=== PATIENT | female | born 1950 | race Hispanic/Latino ===

== ENCOUNTER 2017-03-09 17:50 | Emergency (ER) | payer MEDICARE ==
[2017-03-09 18:30] VITALS: BP 139/67
[2017-03-09] MEDS ORDERED: MORPHINE IV ONE (18:48)
--- NOTE | 2017-03-09 18:48 | Emergency Department Report ---
ED General Adult HPI - General Chief complaint: Dyspnea/Respdistress Stated complaint: SOB Time Seen by Provider: 03/09/17 18:39 Source: EMS Mode of arrival: Stretcher Limitations: No Limitations - History of Present Illness Initial comments: Patient is a 66-year-old female past medical history of hypertension and COPD who presents with shortness of breath that has been going on since Thursday. Patient states that her shortness of breath has been worsening. She is on home O2 at 3 L. 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 She states that the pain is a 7 currently breathing makes it worse nothing makes it better. She states that she's had this pain for the last 6 months. There is nothing new about this pain. He has an achy type of pain it does not radiate. She states that she often goes to ERs when she has a bad exacerbation of her pain and shortness of breath. She also states that the pain has gotten worse and Thursday. Her shortness of breath symptoms are moderate they are worse with exertion and better with rest. - Related Data Allergies Allergy/AdvReac Type Severity Reaction Status Date / Time Penicillins AdvReac Unknown Verified 10/18/13 16:15 ED Review of Systems ROS: Stated complaint: SOB Other details as noted in HPI Constitutional: weakness. denies: chills, fever Eyes: denies: eye pain, eye discharge, vision change ENT: denies: ear pain, throat pain Respiratory: SOB at rest Cardiovascular: denies: chest pain, palpitations Endocrine: no symptoms reported Gastrointestinal: denies: abdominal pain, nausea, diarrhea Genitourinary: denies: urgency, dysuria, discharge Musculoskeletal: denies: back pain, joint swelling, arthralgia Skin: denies: rash, lesions Neurological: denies: headache, weakness, paresthesias Psychiatric: denies: anxiety, depression Hematological/Lymphatic: denies: easy bleeding, easy bruising ED Past Medical Hx - Past Medical History Previous Medical History?: Yes Hx Hypertension: Yes Hx COPD: Yes - Social History Smoking Status: Former Smoker Substance Use Type: None ED Physical Exam - General Limitations: No Limitations General appearance: alert, in no apparent distress - Head Head exam: Present: atraumatic, normocephalic - Eye Eye exam: Present: normal appearance - ENT ENT exam: Present: mucous membranes moist - Neck Neck exam: Present: normal inspection - Respiratory Respiratory exam: Present: normal lung sounds bilaterally - Cardiovascular Cardiovascular Exam: Present: regular rate, normal rhythm. Absent: systolic murmur, diastolic murmur, rubs, gallop - GI/Abdominal GI/Abdominal exam: Present: soft, normal bowel sounds - Extremities Exam Extremities exam: Present: normal inspection - Back Exam Back exam: Present: paraspinal tenderness - Neurological Exam Neurological exam: Present: alert, oriented X3, CN II-XII intact - Psychiatric Psychiatric exam: Present: normal affect, normal mood - Skin Skin exam: Present: warm, dry, intact, normal color. Absent: rash ED Course Vital Signs 03/09/17 03/09/17 03/09/17 18:25 18:26 18:31 Temperature 98.4 F Pulse Rate 68 75 65 Respiratory 10 L 22 11 L Rate Blood Pressure 139/67 O2 Sat by Pulse 99 98 100 Oximetry 03/09/17 03/09/17 03/09/17 18:32 18:47 19:01 Temperature Pulse Rate 85 68 Respiratory 18 20 14 Rate Blood Pressure O2 Sat by Pulse 100 93 Oximetry 03/09/17 03/09/17 03/09/17 19:15 19:31 19:45 Temperature Pulse Rate 71 68 68 Respiratory 19 14 16 Rate Blood Pressure O2 Sat by Pulse 94 97 98 Oximetry 03/09/17 03/09/17 03/09/17 20:01 20:21 20:41 Temperature Pulse Rate 73 67 81 Respiratory 14 11 L 21 Rate Blood Pressure O2 Sat by Pulse 96 99 92 Oximetry 03/09/17 03/09/17 21:01 21:21 Temperature Pulse Rate 71 70 Respiratory 20 10 L Rate Blood Pressure O2 Sat by Pulse 99 99 Oximetry - Reevaluation(s) Reevaluation #1: 03/09/17 20:05 Patient states pain is lead better but she is still slightly short of breath. Discussed admission with the patient. However patient states that she does not want to be admitted if she doesn't have a private room. Discussed with patient that that may not be possible and will give patient a breathing treatment and will reassess. Reevaluation #2: 03/09/17 21:57 Patient states the pain is better she states that her shortness of breath is better. She states that she does not want to be admitted. As there is nothing new. Discussed return precautions to come back to the ER. Engaged and shared decision making patient will go home. Discussed the patient's family state that they will watch her and if her pain continues or for shortness of breath continues patient will go home. Reevaluation #3: 03/09/17 22:21 The control is negative. Will send patient home 03/09/17 22:21 ED Medical Decision Making - Lab Data Result diagrams: 03/09/17 18:30 03/09/17 18:30 Laboratory Results - last 24 hr 03/09/17 03/09/17 18:30 18:30 WBC 6.7 RBC 4.07 Hgb 12.7 Hct 37.8 MCV 93 MCH 31 MCHC 34 RDW 13.5 Plt Count 210 Lymph % (Auto) 26.9 [place] % (Auto) 7.3 Eos % (Auto) 4.2 Baso % (Auto) 0.7 Lymph # 1.8 [place] # 0.5 Eos # 0.3 Baso # 0.0 Seg Neutrophils % 60.9 Seg Neutrophils # 4.1 Sodium 140 Potassium 4.7 Chloride 101.2 Carbon Dioxide 25 Anion Gap 19 BUN 14 Creatinine 0.6 L Estimated GFR > 60 BUN/Creatinine Ratio 23.33 Glucose 85 Calcium 8.8 Troponin T < 0.010 - EKG Data -: EKG Interpreted by Me - EKG Data 03/09/17 20:04 EKG shows normal sinus rhythm no LVH no T-wave inversions no interval changes. - Radiology Data Radiology results: image reviewed Chest x-ray: Shows no acute pulmonary process - Medical Decision Making Chief medical diagnosis: COPD exacerbation Differential medical diagnosis pneumonia, bronchitis, metabolic abnormality We'll get CBC, CMP, chest x-ray, albuterol, IV pain control Patient feels better after breathing treatment, troponin and EKG are within normal limits. We'll send patient home to follow-up with her primary care provider. Stated that patient could be admitted for her symptoms that she desires. Patient denied admission is because she states that she always feels like this and she feels a lot better after the breathing treatment. Critical care attestation.: If time is entered above; I have spent that time in minutes in the direct care of this critically ill patient, excluding procedure time. ED Disposition Clinical Impression: Back pain of thoracolumbar region Disposition: - TO HOME OR SELFCARE Is pt being admited?: No Does the pt Need Aspirin: No Condition: Stable Instructions: Chronic Obstructive Pulmonary Disease (ED), Chronic Back Pain (ED ) Referrals: [facility] [Other] - 3-5 Days Time of Disposition: 22:00
[2017-03-09 18:52] LABS: Basophils % (Auto) 0.7 % (0.0-1.8); Eosinophils % (Auto) 4.2 % (0.0-4.3); Hematocrit 37.8 % (30.3-42.9); Hemoglobin 12.7 gm/dl (10.1-14.3); Mean Corpuscular HGB Conc 34 % (30-34); Mean Corpuscular Hemoglobin 31 pg (28-32); Mean Corpuscular Volume 93 fl (79-97); Platelet Count 210 K/mm3 (140-440); Red Blood Count 4.07 M/mm3 (3.65-5.03); Red Cell Distribution Width 13.5 % (13.2-15.2); White Blood Count 6.7 K/mm3 (4.5-11.0)
[2017-03-09 19:15] LABS: BUN/Creatinine Ratio 23.33; Blood Urea Nitrogen 14 mg/dL (7-17); Calcium 8.8 mg/dL (8.4-10.2); Carbon Dioxide 25 mmol/L (22-30); Chloride 101.2 mmol/L (98-107); Glucose 85 mg/dL (65-100); Sodium 140 mmol/L (137-145)
[2017-03-09 19:21] LABS: Anion Gap 19 mmol/L; Potassium 4.7 mmol/L (3.6-5.0)
[2017-03-09] MEDS ORDERED: PROVENTIL IH ONE (19:58)
[2017-03-09] MEDS ORDERED: ATROVENT IH ONE (19:58)
[2017-03-09] MEDS ORDERED: NORCO 5/325 PO ONE (21:13)
[2017-03-09] MEDS ORDERED: SUBLIMAZE IV ONE (21:13)
--- NOTE | 2017-03-10 09:40 | XRay Report ---
Chest 2 views. History: Shortness of breath. Findings: The heart and pulmonary vessels are normal. The lungs are hyperinflated and clear. There is no pleural fluid. Pleural scarring is seen at the right cost phrenic angle. Impression: No acute findings.
== END 2017-03-09 23:17 | disposition home or self-care (01) ==
LOC: ED 17:50
DX: M54.5 Low back pain (principal); I10 Essential (primary) hypertension; J44.9 Chronic obstructive pulmonary disease, unspecified; Z87.891 Personal history of nicotine dependence; Z88.0 Allergy status to penicillin
CPT/HCPCS: 36415; 71020; 80048; 84484; 85025; 93005; 93010; 94640; 96374; 96375; 99284; J2270; J3010

== ENCOUNTER 2017-11-16 09:54 | Outpatient (CLI) | payer MEDICARE ==
[2017-11-16 10:24] LABS: Blood Urea Nitrogen 15 mg/dL (7-17)
--- NOTE | 2017-11-16 11:50 | Cat Scan Report ---
FINAL REPORT EXAM: CT CHEST W CON HISTORY: SEVERE COPD TECHNIQUE: CT of the chest was performed after the administration of intravenous contrast. Reconstructions were included in the coronal and sagittal planes. PRIORS: None. FINDINGS: Great vessels: The thoracic aorta is normal in caliber. The great vessels are patent. Atherosclerotic calculi are seen in the thoracic aorta. Lungs and airways: No pleural effusion. No pulmonary nodules or masses. No airspace consolidation. The airways are patent. No bronchiectasis. Severe centrilobular emphysema is seen. Mediastinum, heart, pericardium: No mediastinal lymphadenopathy. No cardiac chamber enlargement. No pericardial effusion. Thoracic inlet, chest wall, axilla: No chest wall masses. The visualized portions of the thyroid gland demonstrate no focal lesion. No axillary lymphadenopathy. Upper abdomen: There is an aneurysm of the right distal renal artery measuring up to 1.1 centimeters. A nonspecific 5 millimeter low-attenuation lesion is seen in the spleen which is too small to characterize but likely represents a small cyst or hemangioma. Post cholecystectomy. Bones: Chronic T5 and T6 compression fractures are seen. Old T6 vertebroplasty is seen. Degenerative changes are seen in the spine. IMPRESSION: 1. Severe centrilobular emphysema. No acute process in the chest. 2. 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
== END 2017-11-16 09:55 | disposition home or self-care (01) ==
LOC: CT 09:54
PROVIDERS: ATTEND Internal Medicine
DX: J43.9 Emphysema, unspecified (principal); I72.2 Aneurysm of renal artery; I70.0 Atherosclerosis of aorta; M48.54XD Collapsed vertebra, not elsewhere classified, thoracic region, subsequent encounter for fracture with routine healing; M47.894 Other spondylosis, thoracic region; Z90.49 Acquired absence of other specified parts of digestive tract
CPT/HCPCS: 36415; 71260; 82565; 84520; Q9967

== ENCOUNTER 2018-04-02 08:46 | Outpatient (CLI) | payer MEDICARE ==
[2018-04-02 09:54] LABS: Blood Urea Nitrogen 12 mg/dL (7-17)
--- NOTE | 2018-04-02 11:11 | Cat Scan Report ---
FINAL REPORT EXAM: CT ANGIO ABDOMEN PELVIS HISTORY: ANEURYSM OF RENAL ARTERY COMPARISON: CT of the chest performed on 11/16/2017 TECHNIQUE: Multiple contiguous axial images were obtained from the lung bases to the pubic symphysis after administration of IV contrast. Reformatted maximal intensity projection images were available for review. Reformatted coronal and sagittal images were also available for review. FINDINGS: Lung bases: Normal. Visualized heart and mediastinum: Normal. Liver: Normal. Spleen: Normal. Pancreas: Normal. Gallbladder and Biliary Tree: The gallbladder is surgically absent. There is no biliary ductal dilatation. Adrenal glands: Normal. Kidneys: Symmetric enhancement to both kidneys. No hydronephrosis. Bladder: Normal. Pelvic organs: The uterus is surgically absent. Bowel: Normal. No evidence of obstruction. Diverticulosis of the descending and sigmoid colon without evidence of diverticulitis. Peritoneum: No significant mesenteric adenopathy. No free air. Small amount of free fluid in the pelvis. Vasculature: Abdominal aorta is normal in caliber without evidence of aneurysm. Scattered atherosclerotic plaques and calcifications. There are two arteries to each kidney. The left renal arteries are patent and normal in caliber. Again seen is an aneurysm of the upper distal right renal artery that measures approximately 1.2 x 1.2 centimeters, and is unchanged in appearance as compared to the previous study. There is also a peripherally calcified thrombosed aneurysm of a superior branch of the upper right renal artery that measures 9 millimeters in size (series 2, image 46). The accessory right renal artery is patent and normal in caliber. The celiac axis, superior mesenteric artery, and inferior mesenteric artery are patent and normal in caliber. There is a normal appearance to the inferior vena cava and portal venous system. Bones and soft tissues: No suspicious osseous lesions. No acute fracture or dislocation. Soft tissues are normal. IMPRESSION: 1. Stable size of right renal artery aneurysm that measures approximately 1.2 x 1.2 centimeters. 2. 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 3. Accessory artery to each kidney. 4. Small amount of free fluid in the pelvis, likely physiologic. 5. Diverticulosis of the descending and sigmoid colon without evidence of diverticulitis.
== END 2018-04-02 08:47 | disposition home or self-care (01) ==
LOC: CT 08:46
PROVIDERS: ATTEND Surgery Vascular Surgery
DX: I72.2 Aneurysm of renal artery (principal); K57.30 Diverticulosis of large intestine without perforation or abscess without bleeding; I10 Essential (primary) hypertension; J44.9 Chronic obstructive pulmonary disease, unspecified; Z87.891 Personal history of nicotine dependence
CPT/HCPCS: 36415; 74174; 82565; 84520; Q9967

== ENCOUNTER 2018-10-12 08:27 | Outpatient (CLI) | payer MEDICARE ==
[2018-10-12 09:12] LABS: Blood Urea Nitrogen 12 mg/dL (7-17)
--- NOTE | 2018-10-13 04:41 | Cat Scan Report ---
PROCEDURE: CT ANGIO ABDOMEN PELVIS TECHNIQUE: Computerized axial tomographic angiography of the abdomen and pelvis was performed after the IV injection of iodinated nonionic contrast. The image data was postprocessed using 2-dimensional multiplanar reformatted (MPR) and 3-dimensional (MIP and/or volume rendered) techniques. CT DOSE LENGTH PRODUCT: 650 mGycm HISTORY: ANEURYSM OF RENAL ARTERY COMPARISONS: None . FINDINGS: Abdominal aorta: The lumen of the abdominal aorta has a normal caliber. No aneurysm is seen. Moderat e atherosclerosis of the aorta is noted. . Celiac artery: Normal . Superior mesenteric artery: Normal . Left renal artery: There are 2 arterial structures feeding the left kidney. These have a normal calib er. . Right renal artery: There are 2 arterial structures to be right kidney. The superior arterial structu re has a distal aneurysm with moderate peripheral atherosclerosis. This aneurysm measures 1 cm. . Inferior mesenteric artery: Normal . Common iliacs: Normal . External iliacs: Normal . Internal iliacs: Normal . Hypervascular masses: None . Abdominal and pelvic viscera: Normal . Other: None . IMPRESSION: 2 arterial structures are identified to the right kidney. The superior right renal arter ial structure has a distal aneurysm measuring 1 cm. Minimal peripheral atherosclerosis within the art erial structures are noted. The abdominal aorta has a normal lumen caliber. Moderate atherosclerosis of the aorta is noted. . This document is electronically signed by Lis Suggs DO., October 13 2018 04:39:31 AM ET
== END 2018-10-12 08:28 | disposition home or self-care (01) ==
LOC: CT 08:27
PROVIDERS: ATTEND Surgery Vascular Surgery
DX: I72.2 Aneurysm of renal artery (principal); I73.9 Peripheral vascular disease, unspecified; I10 Essential (primary) hypertension; J44.9 Chronic obstructive pulmonary disease, unspecified
CPT/HCPCS: 36415; 74174; 82565; 84520; Q9967

== ENCOUNTER 2018-12-15 09:09 | Emergency (ER) | payer MEDICARE ==
--- NOTE | 2018-12-15 09:46 | XRay Report ---
ROUTINE CHEST, TWO VIEWS: HISTORY: Short of breath, COPD. Moderate to severe hyperinflation is evident consistent with COPD. No evidence for infiltrate, pleural effusion or pneumothorax. Heart size and pulmonary vessels are within normal limits. Kyphoplasty changes have been performed at the approximate T5 level since 03/09/17. IMPRESSION: COPD.
[2018-12-15] MEDS ORDERED: TORADOL IV ONE (10:48)
[2018-12-15] MEDS ORDERED: NACL 0.9% 500 ML 500 ML IV ONE (10:48)
[2018-12-15] MEDS ORDERED: SUBLIMAZE IV ONE ×2 (10:48→13:56)
--- NOTE | 2018-12-15 10:49 | Emergency Department Report ---
ED General Adult HPI - General Chief complaint: Dyspnea/Respdistress Stated complaint: BACK PAIN/SOB Time Seen by Provider: 12/15/18 10:36 Source: patient, family, RN notes reviewed, old records reviewed Mode of arrival: Ambulatory Limitations: No Limitations - History of Present Illness Initial comments: Primary care doctor: Dr. Solorio Pulmonology: Dr. Rosario Thompson Past medical history: COPD, on home oxygen, history of kyphoplasty, history of incidental right renal artery aneurysm This is a 68-year-old female. The patient is not known to this provider previously. She presents to the emergency room with the complaint of nontraumatic left-sided thoracic back pain. The pain is sharp and achy, and is basically constant, and worsens with palpation, deep inspiration, and it decreases with rest. It has been present for 2 weeks. It does not radiate distally. There is no new or different cough. There is no new or different shortness of breath. There is no abdominal pain. The patient endorses no urinary symptoms. She really hasn't taken much in way of pain medication for this. She saw her pulmonology doctor, who offered the opinion that her pain was likely secondary to musculoskeletal etiology. -: Gradual Location: back Radiation: non-radiation Quality: aching Consistency: constant Improves with: rest Worsens with: other Associated Symptoms: denies: confusion, chest pain - Related Data Previous Rx's Medication Instructions Recorded Last Taken Type Acetaminophen [Non-Aspirin Extra 500 mg PO Q6HR PRN #30 tablet 12/15/18 Unknown Rx Strength] Ibuprofen [Motrin] 400 mg PO Q8H PRN #20 tablet 12/15/18 Unknown Rx Lidocaine [Lidoderm] 1 each TP QDAY #5 adh..patch 12/15/18 Unknown Rx levoFLOXacin [Levaquin TAB] 500 mg PO QDAY #7 tablet 12/15/18 Unknown Rx oxyCODONE [roxiCODONE] 5 mg PO Q6HR PRN #15 tablet 12/15/18 Unknown Rx Allergies Allergy/AdvReac Type Severity Reaction Status Date / Time Penicillins AdvReac Unknown Verified 10/18/13 16:15 ED Review of Systems ROS: Stated complaint: BACK PAIN/SOB Other details as noted in HPI Constitutional: denies: fever Eyes: denies: eye discharge ENT: denies: congestion Respiratory: shortness of breath Cardiovascular: denies: chest pain Gastrointestinal: denies: abdominal pain Genitourinary: denies: dysuria Musculoskeletal: back pain Skin: denies: lesions Neurological: weakness Psychiatric: anxiety ED Past Medical Hx - Past Medical History Previous Medical History?: Yes Hx Hypertension: Yes Hx COPD: Yes - Surgical History Past Surgical History?: Yes Hx Appendectomy: Yes Additional Surgical History: Back surgery - Social History Smoking Status: Former Smoker Substance Use Type: None - Medications Home Medications: Home Medications Medication Instructions Recorded Confirmed Last Taken Type Acetaminophen [Non-Aspirin Extra 500 mg PO Q6HR PRN #30 tablet 12/15/18 Unknown Rx Strength] Ibuprofen [Motrin] 400 mg PO Q8H PRN #20 tablet 12/15/18 Unknown Rx Lidocaine [Lidoderm] 1 each TP QDAY #5 adh..patch 12/15/18 Unknown Rx levoFLOXacin [Levaquin TAB] 500 mg PO QDAY #7 tablet 12/15/18 Unknown Rx oxyCODONE [roxiCODONE] 5 mg PO Q6HR PRN #15 tablet 12/15/18 Unknown Rx ED Physical Exam - General Limitations: No Limitations General appearance: alert, anxious, in distress - Head Head exam: Present: atraumatic, normocephalic - Eye Eye exam: Present: normal appearance, EOMI. Absent: nystagmus - ENT ENT exam: Present: normal exam, normal orophraynx, mucous membranes moist, normal external ear exam - Neck Neck exam: Present: normal inspection, full ROM. Absent: tenderness, meningismus - Respiratory Respiratory exam: Present: normal lung sounds bilaterally, respiratory distress, chest wall tenderness, decreased breath sounds - Cardiovascular Cardiovascular Exam: Present: regular rate, normal rhythm, normal heart sounds. Absent: bradycardia, tachycardia, irregular rhythm, systolic murmur, diastolic murmur, rubs, gallop - GI/Abdominal GI/Abdominal exam: Present: soft. Absent: distended, tenderness, guarding, rebound, rigid, pulsatile mass - Extremities Exam Extremities exam: Present: normal inspection, full ROM, other (2+ pulses noted in the bilateral upper, lower extremities. Compartments soft. No long bony tenderness. The pelvis is stable.). Absent: pedal edema, joint swelling, calf tenderness - Back Exam Back exam: Present: normal inspection, full ROM, paraspinal tenderness. Absent: tenderness, CVA tenderness (R), CVA tenderness (L) - Neurological Exam Neurological exam: Present: alert, other (Extraocular movements intact. Tongue midline. No facial droop. Facial sensation intact to light touch in the V1, V2, V3 distribution bilaterally. 5 and 5 strength in 4 extremities.. Sensation is intact to light touch in 4 extremities.). Absent: motor sensory deficit - Psychiatric Psychiatric exam: Present: anxious - Skin Skin exam: Present: warm, dry, intact, normal color. Absent: rash ED Course Vital Signs 12/15/18 12/15/18 12/15/18 09:16 11:31 11:45 Temperature Pulse Rate 70 Respiratory 24 23 Rate Blood Pressure 130/57 Blood Pressure [Right] O2 Sat by Pulse 95 100 99 Oximetry 12/15/18 12/15/18 12/15/18 11:49 12:00 12:15 Temperature Pulse Rate 76 72 Respiratory 22 16 17 Rate Blood Pressure 118/66 118/66 Blood Pressure [Right] O2 Sat by Pulse 98 100 Oximetry 12/15/18 12/15/18 12/15/18 12:30 12:45 13:00 Temperature 98.2 F 98.5 F Pulse Rate 72 79 Respiratory 24 18 Rate Blood Pressure 118/59 118/59 Blood Pressure [Right] O2 Sat by Pulse 100 99 Oximetry 12/15/18 12/15/18 12/15/18 13:03 13:15 13:31 Temperature Pulse Rate 106 H 83 87 Respiratory 21 17 21 Rate Blood Pressure 118/59 118/59 118/59 Blood Pressure [Right] O2 Sat by Pulse 95 100 98 Oximetry 12/15/18 12/15/18 12/15/18 13:45 14:15 14:22 Temperature 98.6 F Pulse Rate 86 87 83 Respiratory 20 19 18 Rate Blood Pressure 126/59 89/44 Blood Pressure 155/69 [Right] O2 Sat by Pulse 98 98 99 Oximetry 12/15/18 15:05 Temperature Pulse Rate Respiratory 18 Rate Blood Pressure Blood Pressure [Right] O2 Sat by Pulse Oximetry - Reevaluation(s) Reevaluation #1: 12/15/18 11:32 Differential diagnosis, including but not limited to: Costochondritis, pleurisy, pneumonia, pulmonary embolus Assessment and plan: 68-year-old female with reported 2 weeks of reproducible left-sided thoracic back pain, pleuritic in nature, suspect musculoskeletal etiology. We will obtain CT scan of the chest to exclude alternative pathology. We will treat the patient's pain. We will reassess after initial data points. She is afebrile, with reassuring vital signs, and otherwise clinically appears to be benign. 12/15/18 11:32 Reevaluation #3: 12/15/18 13:57 Resting comfortably. Pain improved. Requesting additional pain medication. Angiogram interpretation is pending. Discussed vital signs, laboratory studies and urinalysis with patient and family, all of whom verbalized understanding. Patient endorses increased discomfort at this time. 12/15/18 15:34 CT scan is reviewed and appreciated. Discussed results with patient and family. Patient states that she has had Levaquin in the past. She is amenable to Levaquin. Discussed risks and side effects, including tendinopathy and tendon rupture. Patient thinks that she cannot tolerate penicillin. We will therefore cover empirically with Levaquin. Extensive discussion had with patient and family regarding CT scan. Patient understands need to closely follow up as an outpatient with her creative project manager and primary care doctor to cover goals of care, clarify advanced directives, and discussed outpatient management options. Patient and I had extensive discus aleida, and discussed various therapeutic modalities, including palliative care, versus aggressive care. ED Medical Decision Making - Lab Data Result diagrams: 12/15/18 11:15 12/15/18 11:15 Vital Signs 12/15/18 09:16 Respiratory 24 Rate O2 Sat by Pulse 95 Oximetry - EKG Data 12/15/18 11:33 This is a normal sinus, 80 bpm, normal axis, normal intervals, poor R progression, motion artifact, not having chest pain, this is an abnormal EKG, it is not consistent with ST elevation myocardial infarction, when compared to prior EKG from 2016, appears to be grossly unchanged. - Radiology Data Radiology results: report reviewed, image reviewed X-ray of the chest is negative for acute disease. Chronic emphysematous changes noted Referring Physician: SULEMA GRANGER Patient Name: CHRIS MEJÍA Date of : 1950 Sex: Female Report Date: 2018-12-15 Report Status: Finalized [address] [address] Cat Scan Report Signed Patient: CHRIS MEJÍA MR#: [id number] : 1950 Acct:[id number] Age/Sex: 68 / F ADM Date: 12/15/18 Loc: ED Att ending Dr: Ordering Physician: SULEMA GRANGER MD Date of Service: 12/15/18 Procedure(s): CT angio chest Accession Number(s): [id number] cc: SULEMA GRANGER MD PROCEDURE: CT ANGIO CHEST TECHNIQUE: TECHNIQUE: CT examination of the chest after IV contrast. Multiplanar angiographic image post processing. CT DOSE LENGTH PRODUCT: 498.9 mGycm HISTORY: left sided pleuritic pain COMPARISONS: Chest CT 11/16/2017 . FINDINGS: Normal cardiac size without pericardial effusion. Intact normal caliber thoracic aorta with slight calcified atherosclerotic plaque. Normal-appearing esophagus. No hilar mass or mediastinal adenopathy. The visualized pulmonary arteries are diffusely patent bilaterally. There is no filling defect to suggest PE. Nonspecific enhancing lesions adjacent to the right renal hilus appear vascular. These may be distal renal artery aneurysms. Anterior superior lesion measures 15 mm and posterior inferior lesion measures 12 mm. Degenerative change in the regional skeleton. No evidence of acute fracture. Chronic compression fractures of T5 and T6, with T6 kyphoplasty, appear unchanged. No pneumothorax or pleural effusion. Persistent bilateral pulmonary emphysema with scattered interstitial scarring. New nonspecific nodular density is noted posteriorly within region of emphysematous scarring in the posterior aspect of the left lower lobe. Area of involvement is approximately 1.1 x 3.6 cm. This may be scar consolidation, inflammation,, atelectasis, or infection. Differential includes neoplastic infiltration with lesion relatively dispersed. IMPRESSION: New nonspecific nodular density in the region of the posterior left lower lobe emphysematous scarring. This may be scar consolidation, inflammation, atelectasis, or infection. Differential includes neoplastic infiltration with lesion relatively dispersed. Per Fleischner Society guidelines, a nodule larger than 8mm should be further evaluated with the following options: PET-CT Or biopsy of the nodule Or Noncontrast surveillance chest CT follow-up at 3, 9 and 24 months Nonspecific enhancing lesions adjacent to the right renal hilus may again reflect pulmonary artery aneurysms Stable chronic compression fractures of T6 and T5 with T6 kyphoplasty Bilateral pulmonary emphysema with interstitial scarring No CT evidence of pulmonary arterial embolic disease This document is electronically signed by Tyrel Thacker MD., Dec 15 2018 02:35:00 PM ET Transcribed By: BAL Dictated By: TYREL THACKER MD Electronically Authenticated By: TYREL THACKER MD Signed Date/Time: 12/15/18 1436 Critical Care Time: Yes Critical care time in (mins) excluding proc time.: 45 Critical care attestation.: If time is entered above; I have spent that time in minutes in the direct care of this critically ill patient, excluding procedure time. ED Disposition Clinical Impression: Back pain, History of COPD Disposition: DC-01 TO HOME OR SELFCARE Is pt being admited?: No Does the pt Need Aspirin: No Condition: Stable Additional Instructions: Take pain medications as needed/directed. Take the antibiotics as needed/directed. Do not take metformin for the next 48 hours, if patient takes this medication. Cultures were sent today, and results will be available in the next 3-5 days. P callum have a primary care doctor contact medical records department to obtain culture results. CT scan of the chest (report was physically handed to patient and family) demonstrated nonspecific findings which need to be followed up by her primary care doctor or manipulative therapy specialist. Patient should follow up closely, within the next 7-10 days, to exclude cancer, tumor, malignancy. Please follow up with her primary care doctor or pain specialist ( Dr Preet Meade) within the next 7-10 days. Please return to the emergency room right away with new pain, worsened pain, migration of pain, projectile vomiting, change in mental status, confusion, inability to tolerate liquid feeds, new, worsening or different symptoms. Referrals: JULIO CESAR SOLORIO MD [Referring] - 3-5 Days DAFNE TALAVERA MD [Staff Physician] - 3-5 Days LASHA MEADE MD [Staff Physician] - 3-5 Days
[2018-12-15] MEDS ORDERED: LIDODERM 5% TD STA (11:27)
[2018-12-15 11:38] LABS: Hemoglobin 12.1 gm/dl (10.1-14.3); Mean Corpuscular HGB Conc 34 % (30-34); Mean Corpuscular Volume 93 fl (79-97); Platelet Count 199 K/mm3 (140-440); Red Blood Count 3.88 M/mm3 (3.65-5.03); Red Cell Distribution Width 13.4 % (13.2-15.2)
[2018-12-15 11:51] LABS: INR 0.82 (0.87-1.13)
[2018-12-15 11:56] LABS: Bacteria,Urine 2+ /HPF (Negative); Bilirubin,Urine NEG (Negative); Blood,Urine MOD (Negative); Color,Urine Straw (Yellow); Mucus,Urine FEW /HPF; Protein,Urine <15 mg/dL mg/dL (Negative); Urobilinogen,Urine < 2.0 mg/dL (<2.0)
[2018-12-15 11:59] LABS: BUN/Creatinine Ratio 22; Blood Urea Nitrogen 11 mg/dL (7-17); Calcium 9.3 mg/dL (8.4-10.2); Hemolysis Index 1
[2018-12-15] MEDS ORDERED: XYLOCAINE CARDIAC IV ONE (13:56)
--- NOTE | 2018-12-15 14:36 | Cat Scan Report ---
PROCEDURE: CT ANGIO CHEST TECHNIQUE: TECHNIQUE: CT examination of the chest after IV contrast. Multiplanar angiographic image post processing. CT DOSE LENGTH PRODUCT: 498.9 mGycm HISTORY: left sided pleuritic pain COMPARISONS: Chest CT 11/16/2017 . FINDINGS: Normal cardiac size without pericardial effusion. Intact normal caliber thoracic aorta with slight ca lcified atherosclerotic plaque. Normal-appearing esophagus. No hilar mass or mediastinal adenopathy. The visualized pulmonary arteries are diffusely patent bilaterally. There is no filling defect to sug gest PE. Nonspecific enhancing lesions adjacent to the right renal hilus appear vascular. These may be distal renal artery aneurysms. Anterior superior lesion measures 15 mm and posterior inferior lesion measure s 12 mm. Degenerative change in the regional skeleton. No evidence of acute fracture. Chronic compression frac tures of T5 and T6, with T6 kyphoplasty, appear unchanged. No pneumothorax or pleural effusion. Persistent bilateral pulmonary emphysema with scattered intersti tial scarring. New nonspecific nodular density is noted posteriorly within region of emphysematous scarring in the p osterior aspect of the left lower lobe. Area of involvement is approximately 1.1 x 3.6 cm. This may b e scar consolidation, inflammation,, atelectasis, or infection. Differential includes neoplastic infi ltration with lesion relatively dispersed. IMPRESSION: New nonspecific nodular density in the region of the posterior left lower lobe emphysematous scarring . This may be scar consolidation, inflammation, atelectasis, or infection. Differential includes neop lastic infiltration with lesion relatively dispersed. Per Fleischner Society guidelines, a nodule lar kaylene than 8mm should be further evaluated with the following options: PET-CT Or biopsy of the nodule Or Noncontrast surveillance chest CT follow-up at 3, 9 and 24 months Nonspecific enhancing lesions adjacent to the right renal hilus may again reflect pulmonary artery an eurysms Stable chronic compression fractures of T6 and T5 with T6 kyphoplasty Bilateral pulmonary emphysema with interstitial scarring No CT evidence of pulmonary arterial embolic disease This document is electronically signed by Tyrel Thacker MD., Dec 15 2018 02:35:00 PM ET
[2018-12-15 15:48] VITALS: BP 145/75
== END 2018-12-15 16:11 | disposition home or self-care (01) ==
LOC: ED 09:09
DX: M54.6 Pain in thoracic spine (principal); J44.9 Chronic obstructive pulmonary disease, unspecified; I10 Essential (primary) hypertension; Z90.89 Acquired absence of other organs; Z98.890 Other specified postprocedural states; Z87.891 Personal history of nicotine dependence; Z87.81 Personal history of (healed) traumatic fracture; Z86.79 Personal history of other diseases of the circulatory system; Z88.0 Allergy status to penicillin
CPT/HCPCS: 36415; 71046; 71275; 80048; 81001; 85027; 85610; 85730; 87086; 93005; 93010; 96374; 96375; 96376; 99285; J1885; J2001; J3010; J7040; Q9967

== ENCOUNTER 2019-02-24 11:02 | Outpatient (CLI) | payer MEDICARE ==
--- NOTE | 2019-02-25 10:04 | PET Report ---
POSITRON EMISSION TOMOGRAPHY WITH CT FOR ATTENUATION CORRECTION AND ANATOMIC CORRELATION ONLY Indication: Left lower lobe lesion on CT Comparison: None available the report from CT chest of 12/15/2018 has been reviewed Technique: Study was performed from skull base to mid thigh using 14.353 millicuries of [id number] injec carmen into the left antecubital fossa at 1148 hours with scan initiation time of 1234 hours. Just prior to injection, serum glucose level was measured at 100 mg/dl. Low-resolution CT without contrast was performed. All CT scans at this location are performed using CT dose reduction for ALARA by means of automated exposure control. CT findings: No mediastinal or hilar masses are obvious. Atherosclerotic changes are moderately promi nent throughout. Previously reported mostly upper lobe emphysematous changes are seen bilaterally. An area of atelectasis or scarring is seen in the anterior aspect of the left upper lobe. Within this a samaria of vague density there is an ovoid slightly nodular and more solid-appearing density measuring 11 mm in length and 6 mm in thickness. In the superior segment of the left lower lobe posteriorly adjac ent to the pleural surface, a small nodular type density is seen measuring 9 mm which elongates along the pleural surface. No significant radiographic lesions are seen below the diaphragm. PET findings: No hypermetabolic lesions are seen in the neck. No mediastinal or hilar hypermetabolic lesions are seen. The area of atelectasis versus scarring radiographically in the anterior aspect of the left upper lobe shows a small amount of metabolic activity with maximal SUV of only 2.3 appearing to correspond roughly with the nodular area of maximal density. The more nodular focus along the ple ural surface in the left lower lobe also shows increased metabolic activity which has a peak value of 2.7. No other areas of increased metabolic activity are seen in the thorax. No significant lesions a re seen in the abdomen or pelvis. IMPRESSION: 1. The area in question on prior report of the CT in December shows mild increased metabolic activity. Thi s nodular density is somewhat scarlike in configuration but the presence of activity is of concern an d neoplasia cannot be excluded. 2. A vague area of atelectatic change and/or scarring in the left upper lobe anteriorly has a denser central area which shows small amount of increased metabolic activity. Neoplasia cannot be excluded t vi this could be inflammatory and radiographically is more likely inflammatory. Signer Name: Andrew Patterson MD Signed: 02/25/2019 9:59 AM Workstation Name: [id number]
== END 2019-02-24 11:03 | disposition home or self-care (01) ==
LOC: PET 11:02
PROVIDERS: ATTEND Internal Medicine
DX: J98.11 Atelectasis (principal); I10 Essential (primary) hypertension; J44.9 Chronic obstructive pulmonary disease, unspecified
CPT/HCPCS: 78815; 82962; A9552

== ENCOUNTER 2019-03-17 06:16 | Day surgery (SDC) | payer MEDICARE ==
[2019-03-17] MEDS ORDERED: NACL 0.9% 500 ML 500 ML IV SCH (07:00)
[2019-03-17 07:06] VITALS: BP 136/57
[2019-03-17 07:07] LABS: Basophils % (Auto) 1.1 % (0.0-1.8); Eosinophils # (Auto) 0.3 K/mm3 (0.0-0.4); Eosinophils % (Auto) 6.2 % (0.0-4.3); Hematocrit 33.6 % (30.3-42.9); Hemoglobin 11.2 gm/dl (10.1-14.3); Lymphocytes # (Auto) 1.2 K/mm3 (1.2-5.4); Lymphocytes % (Auto) 27.1 % (13.4-35.0); Mean Corpuscular HGB Conc 33 % (30-34); Mean Corpuscular Volume 91 fl (79-97); Monocytes # (Auto) 0.3 K/mm3 (0.0-0.8); Monocytes % (Auto) 8.2 % (0.0-7.3); Platelet Count 177 K/mm3 (140-440); Red Blood Count 3.69 M/mm3 (3.65-5.03)
[2019-03-17 07:17] LABS: INR 0.92 (0.87-1.13); Partial Thromboplastin Time 30.3 Sec. (24.2-36.6)
[2019-03-17] MEDS ORDERED: DILAUDID IV NR (08:00)
[2019-03-17] MEDS ORDERED: ZOFRAN IV NR (08:00)
== END 2019-03-17 08:25 | disposition home or self-care (01) ==
LOC: CATHLABREC 06:16 → EDSTATUS 08:30
PROVIDERS: ATTEND Internal Medicine
DX: J44.9 Chronic obstructive pulmonary disease, unspecified (principal); R91.8 Other nonspecific abnormal finding of lung field; I10 Essential (primary) hypertension; M06.9 Rheumatoid arthritis, unspecified; F41.9 Anxiety disorder, unspecified; Z53.8 Procedure and treatment not carried out for other reasons; Z88.0 Allergy status to penicillin; Z79.899 Other long term (current) drug therapy; Z87.891 Personal history of nicotine dependence; E78.00 Pure hypercholesterolemia, unspecified; Z90.49 Acquired absence of other specified parts of digestive tract; Z98.890 Other specified postprocedural states; Z87.442 Personal history of urinary calculi; Z82.5 Family history of asthma and other chronic lower respiratory diseases; Z79.01 Long term (current) use of anticoagulants
CPT/HCPCS: 36415; 85025; 85610; 85730; J7040

== ENCOUNTER 2019-05-17 08:43 | Emergency (ER) | payer MEDICARE ==
[2019-05-17] MEDS ORDERED: PROVENTIL IH ONE (09:22)
[2019-05-17] MEDS ORDERED: ATROVENT IH ONE (09:22)
[2019-05-17] MEDS ORDERED: SOLU-Medrol IV ONE (09:22)
[2019-05-17] MEDS ORDERED: ZOFRAN IV ONE (09:23)
[2019-05-17] MEDS ORDERED: MORPHINE IV ONE (09:23)
--- NOTE | 2019-05-17 09:26 | Emergency Department Report ---
ED Shortness of Breath HPI - General Chief Complaint: Dyspnea/Respdistress Stated Complaint: LUIS Time Seen by Provider: 05/17/19 09:17 Source: patient, EMS Mode of arrival: Stretcher Limitations: No Limitations - History of Present Illness Initial Comments: Patient is 69 years old female with history of COPD and hypertension. Patient presented to the ER accompanied by her family complaining of shortness of breath for the last 3 days. Patient stated that she is taking albuterol breathing treatment with no help. Patient denied any chest pain, fever or chills. She also denied any nausea or vomiting. MD Complaint: shortness of breath, cough -: days(s) (2) Known History Of: COPD - Related Data Home Medications Medication Instructions Recorded Confirmed Last Taken ALBUTEROL NEB's [Proventil 0.083% 3 ml INHALATION QID 03/17/19 03/17/19 03/17/19 NEBS] 1 dose ALPRAZolam [Xanax TAB] 0.5 tab PO PRN PRN 03/17/19 03/17/19 03/16/19 0.5tab Citalopram [Celexa] 20 mg PO DAILY 03/17/19 03/17/19 03/16/19 20 mg Fluticasone [Flonase] 1 spray INTRANASAL PRN PRN 03/17/19 03/17/19 11/15/18 1 spray Fluticasone/Vilanterol [Breo 1 puff INHALATION DAILY 03/17/19 03/17/19 03/16/19 Ellipta 100-25 Mcg INH] 1 puff HYDROcodone/APAP 10-325 [[place] 1 tab PO TID PRN 03/17/19 03/17/19 03/16/19 10-325 mg TAB] 1 tab Ipratropium/Albuterol Sulfate 2 puff INHALATION BID 03/17/19 03/17/19 03/16/19 [Combivent Respimat] 2 puff Losartan [Cozaar] 50 mg PO DAILY 03/17/19 03/17/19 03/16/19 50 mg traZODone [Desyrel] 50 mg PO TID 03/17/19 03/17/19 03/16/19 50 mg Allergies Allergy/AdvReac Type Severity Reaction Status Date / Time Penicillins AdvReac Rash Verified 03/17/19 06:40 ED Review of Systems ROS: Stated complaint: LUIS Other details as noted in HPI Comment: All other systems reviewed and negative Constitutional: denies: chills, fever Respiratory: cough, shortness of breath, SOB with exertion, SOB at rest, wheezing. denies: orthopnea Cardiovascular: denies: chest pain, palpitations Gastrointestinal: denies: abdominal pain, nausea, vomiting Musculoskeletal: denies: back pain ED Past Medical Hx - Past Medical History Hx Hypertension: Yes Hx Arthritis: Yes Hx Kidney Stones: Yes Hx COPD: Yes - Surgical History Hx Cholecystectomy: Yes Hx Appendectomy: Yes Additional Surgical History: Back surgery - Social History Smoking Status: Former Smoker - Medications Home Medications: Home Medications Medication Instructions Recorded Confirmed Last Taken Type ALBUTEROL NEB's [Proventil 0.083% 3 ml INHALATION QID 03/17/19 03/17/19 03/17/19 History NEBS] 1 dose ALPRAZolam [Xanax TAB] 0.5 tab PO PRN PRN 03/17/19 03/17/19 03/16/19 History 0.5tab Citalopram [Celexa] 20 mg PO DAILY 03/17/19 03/17/19 03/16/19 History 20 mg Fluticasone [Flonase] 1 spray INTRANASAL PRN PRN 03/17/19 03/17/19 11/15/18 History 1 spray Fluticasone/Vilanterol [Breo 1 puff INHALATION DAILY 03/17/19 03/17/19 03/16/19 History Ellipta 100-25 Mcg INH] 1 puff HYDROcodone/APAP 10-325 [[place] 1 tab PO TID PRN 03/17/19 03/17/19 03/16/19 History 10-325 mg TAB] 1 tab Ipratropium/Albuterol Sulfate 2 puff INHALATION BID 03/17/19 03/17/19 03/16/19 History [Combivent Respimat] 2 puff Losartan [Cozaar] 50 mg PO DAILY 03/17/19 03/17/19 03/16/19 History 50 mg traZODone [Desyrel] 50 mg PO TID 03/17/19 03/17/19 03/16/19 History 50 mg ED Physical Exam - General Limitations: No Limitations General appearance: alert, in no apparent distress - Head Head exam: Present: atraumatic, normocephalic, normal inspection - Eye Eye exam: Present: normal appearance, PERRL - ENT ENT exam: Present: normal exam, normal orophraynx, mucous membranes moist - Neck Neck exam: Present: normal inspection, full ROM. Absent: tenderness, meningismus, lymphadenopathy, thyromegaly - Respiratory Respiratory exam: Present: respiratory distress, wheezes, rhonchi. Absent: rales, stridor, accessory muscle use, decreased breath sounds, prolonged expirat ory - Cardiovascular Cardiovascular Exam: Present: regular rate, normal rhythm, normal heart sounds - GI/Abdominal GI/Abdominal exam: Present: soft, normal bowel sounds. Absent: distended, tenderness, guarding, rebound, rigid, organomegaly, mass, bruit, pulsatile mass, hernia - Extremities Exam Extremities exam: Present: normal inspection, full ROM, normal capillary refill. Absent: tenderness, pedal edema, calf tenderness - Back Exam Back exam: Present: normal inspection, full ROM. Absent: CVA tenderness (R), CVA tenderness (L) - Neurological Exam Neurological exam: Present: alert, oriented X3, CN II-XII intact, normal gait, reflexes normal - Psychiatric Psychiatric exam: Present: normal mood - Skin Skin exam: Present: warm, intact, normal color ED Course Vital Signs 05/17/19 05/17/19 10:22 11:16 Temperature 98.3 F Pulse Rate 78 Pulse Rate [ 79 Anterior Bilateral Throughout] Respiratory 16 Rate Respiratory 18 Rate [Anterior Bilateral Throughout] Blood Pressure 116/41 [Left] O2 Sat by Pulse 97 Oximetry ED Medical Decision Making - Lab Data Result diagrams: 05/17/19 09:39 05/17/19 09:39 - EKG Data -: EKG Interpreted by Pa EKG shows normal: sinus rhythm Rate: normal - EKG Data Interpretation: no acute changes - Radiology Data Radiology results: report reviewed - Medical Decision Making Patient is 69 years old female with history of COPD and hypertension. Patient presented to the ER accompanied by her family complaining of shortness of breath for the last 3 days. Patient stated that she is taking albuterol breathing treatment with no help. Patient denied any chest pain, fever or chills. She also denied any nausea or vomiting. Patient received albuterol, Atrovent, Solu-Medrol. Patient stated that she is feeling much better. Lung is clear with no wheezing. Chest x-ray is unremarkable. Labs reviewed and is unremarkable. Patient given a prescription of prednisone pack and Levaquin and advised to follow-up with her primary care physician in the next 2-3 days and to attend to the ER if symptoms are not improved. Critical care attestation.: If time is entered above; I have spent that time in minutes in the direct care of this critically ill patient, excluding procedure time. ED Disposition Clinical Impression: Shortness of breath, COPD exacerbation, Acute bronchitis Disposition: TO HOME OR SELFCARE Is pt being admited?: No Condition: Stable Instructions: Chronic Obstructive Pulmonary Disease (ED), Acute Bronchitis (ED) Referrals: SULEMA CAMPUZANO MD [Primary Care Provider] - 3-5 Days
--- NOTE | 2019-05-17 09:41 | XRay Report ---
CHEST 1 VIEW INDICATION: Dyspnea. COMPARISON: 12/15/2018 FINDINGS: Support devices: None. Heart: Within normal limits. Lungs/Pleura: The lungs are mildly hyperinflated suggesting underlying emphysematous changes. No evid ence for infiltrate, pleural fluid or pneumothorax. Additional findings: The bony structures are intact but appear osteopenic. IMPRESSION: Emphysematous changes. No acute process. Signer Name: Naresh Mera Jr, MD Signed: 05/17/2019 9:37 AM Workstation Name: [id number]
[2019-05-17] MEDS ORDERED: MORPHINE ONE (09:56)
[2019-05-17 10:19] LABS: Hematocrit 36.5 % (30.3-42.9); Mean Corpuscular HGB Conc 33 % (30-34); Mean Corpuscular Volume 91 fl (79-97); Platelet Count 136 K/mm3 (140-440); Red Blood Count 3.99 M/mm3 (3.65-5.03); Red Cell Distribution Width 13.4 % (13.2-15.2)
[2019-05-17 10:30] LABS: INR 1.03 (0.87-1.13)
[2019-05-17 10:31] LABS: BUN/Creatinine Ratio 30; Blood Urea Nitrogen 12 mg/dL (7-17); Hemolysis Index 24
[2019-05-17 10:34] LABS: Alanine Aminotransferase 12 units/L (7-56); Albumin 4.3 g/dL (3.9-5)
[2019-05-17 10:35] LABS: Bilirubin,Direct < 0.2 mg/dL (0-0.2)
[2019-05-17 10:47] LABS: Partial Thromboplastin Time 30.6 Sec. (24.2-36.6)
[2019-05-17 11:35] LABS: Band Neutrophils # (Manual) 0.2 K/mm3; Eosinophils % (Manual) 0 % (0.0-4.3); Platelet Estimate Consistent w Auto; RBC Morphology Normal; Total Cells Counted 100
[2019-05-17 11:53] VITALS: BP 120/56
== END 2019-05-17 11:51 | disposition home or self-care (01) ==
LOC: ED 08:43
DX: J44.1 Chronic obstructive pulmonary disease with (acute) exacerbation (principal); J20.9 Acute bronchitis, unspecified; M19.90 Unspecified osteoarthritis, unspecified site; N20.0 Calculus of kidney; Z90.49 Acquired absence of other specified parts of digestive tract; Z90.89 Acquired absence of other organs; Z87.891 Personal history of nicotine dependence; Z88.0 Allergy status to penicillin
CPT/HCPCS: 36415; 71045; 80048; 80076; 83880; 84484; 85007; 85025; 85610; 85730; 93005; 93010; 94640; 96374; 96375; 99284; J2270; J2405; J2930; 94644

== ENCOUNTER 2020-01-10 16:02 | Emergency (ER) | payer MEDICARE ==
[2020-01-10] MEDS ORDERED: HYDROcodone/ACETAMINOPHEN 5-325 MG TAB PO ONE (16:53)
[2020-01-10] MEDS ORDERED: LIDOCAINE 1%/EPINEPHRINE 1:100,000 VIAL (20 ML) INFILTRATI NR (17:00)
--- NOTE | 2020-01-10 17:19 | XRay Report ---
XR knee 3V RT INDICATION / CLINICAL INFORMATION: pain after fall. COMPARISON: None available. FINDINGS: BONES/JOINT(S): No acute fracture or subluxation. Mild DJD in the medial femorotibial compartment. No significant joint effusion. Mild diffuse subjective bone demineralization. SOFT TISSUES: No significant abnormality. ADDITIONAL FINDINGS: None. Signer Name: Timothy Franco MD Signed: 01/10/2020 5:14 PM Workstation Name: [id number]
--- NOTE | 2020-01-10 17:28 | Emergency Department Report ---
<DENA BAKER - Last Filed: 01/10/20 17:23> ED Fall HPI - General Chief Complaint: Fall Stated Complaint: FALL LACERATION TO ARM/KNEE PAIN Time Seen by Provider: 01/10/20 16:52 Source: patient Mode of arrival: Stretcher - History of Present Illness Initial Comments: Patient is a 69-year-old female with a past medical history of COPD who suffered a fall at home. Patient states she tripped on her oxygen tubing. She denies any head injury or loss of consciousness. Patient complaining of pain to the right anterior knee. She is not tried to stand but has pain with bending the knee. She also has pain to the right forearm suffered a laceration. Patient states pain is a 10 out of 10 in severity worse with movement better with rest. - Related Data Home Medications Medication Instructions Recorded Confirmed Last Taken ALBUTEROL NEB's [Proventil 0.083% 3 ml INHALATION QID 03/17/19 03/17/19 03/17/19 NEBS] 1 dose ALPRAZolam [Xanax TAB] 0.5 tab PO PRN PRN 03/17/19 03/17/19 03/16/19 0.5tab Citalopram [Celexa] 20 mg PO DAILY 03/17/19 03/17/19 03/16/19 20 mg Fluticasone [Flonase] 1 spray INTRANASAL PRN PRN 03/17/19 03/17/19 11/15/18 1 spray Fluticasone/Vilanterol [Breo 1 puff INHALATION DAILY 03/17/19 03/17/19 03/16/19 Ellipta 100-25 Mcg INH] 1 puff HYDROcodone/APAP 10-325 [[place] 1 tab PO TID PRN 03/17/19 03/17/19 03/16/19 10-325 mg TAB] 1 tab Ipratropium/Albuterol Sulfate 2 puff INHALATION BID 03/17/19 03/17/19 03/16/19 [Combivent Respimat] 2 puff Losartan [Cozaar] 50 mg PO DAILY 03/17/19 03/17/19 03/16/19 50 mg traZODone [Desyrel] 50 mg PO TID 03/17/19 03/17/19 03/16/19 50 mg Previous Rx's Medication Instructions Recorded Last Taken Type Ciprofloxacin [Ciprofloxacin ORAL 500 mg PO Q12H 7 Days ml 05/17/19 Unknown Rx LIQ] Prednisone [predniSONE 10 mg 10 mg PO .TAPER #1 tab.ds.pk 05/17/19 Unknown Rx (6-Day Pack, 21 Tabs)] HYDROcodone/APAP 5-325 [[place] 1 each PO Q6HR PRN #10 tablet 01/10/20 Unknown Rx 5/325] Allergies Allergy/AdvReac Type Severity Reaction Status Date / Time Penicillins AdvReac Rash Verified 03/17/19 06:40 ED Review of Systems Comment: All other systems reviewed and negative ED Past Medical Hx - Past Medical History Hx Hypertension: Yes Hx Arthritis: Yes Hx Kidney Stones: Yes Hx COPD: Yes - Surgical History Hx Cholecystectomy: Yes Hx Appendectomy: Yes Additional Surgical History: Back surgery - Social History Smoking Status: Never Smoker Substance Use Type: None - Medications Home Medications: Home Medications Medication Instructions Recorded Confirmed Last Taken Type ALBUTEROL NEB's [Proventil 0.083% 3 ml INHALATION QID 03/17/19 03/17/19 03/17/19 History NEBS] 1 dose ALPRAZolam [Xanax TAB] 0.5 tab PO PRN PRN 03/17/19 03/17/19 03/16/19 History 0.5tab Citalopram [Celexa] 20 mg PO DAILY 03/17/19 03/17/19 03/16/19 History 20 mg Fluticasone [Flonase] 1 spray INTRANASAL PRN PRN 03/17/19 03/17/19 11/15/18 History 1 spray Fluticasone/Vilanterol [Breo 1 puff INHALATION DAILY 03/17/19 03/17/19 03/16/19 History Ellipta 100-25 Mcg INH] 1 puff HYDROcodone/APAP 10-325 [[place] 1 tab PO TID PRN 03/17/19 03/17/19 03/16/19 History 10-325 mg TAB] 1 tab Ipratropium/Albuterol Sulfate 2 puff INHALATION BID 03/17/19 03/17/19 03/16/19 History [Combivent Respimat] 2 puff Losartan [Cozaar] 50 mg PO DAILY 03/17/19 03/17/19 03/16/19 History 50 mg traZODone [Desyrel] 50 mg PO TID 03/17/19 03/17/19 03/16/19 History 50 mg Ciprofloxacin [Ciprofloxacin ORAL 500 mg PO Q12H 7 Days ml 05/17/19 Unknown Rx LIQ] Prednisone [predniSONE 10 mg 10 mg PO .TAPER #1 tab.ds.pk 05/17/19 Unknown Rx (6-Day Pack, 21 Tabs)] HYDROcodone/APAP 5-325 [[place] 1 each PO Q6HR PRN #10 tablet 01/10/20 Unknown Rx 5/325] ED Physical Exam - General Limitations: No Limitations General appearance: alert, in no apparent distress - Head Head exam: Present: atraumatic, normocephalic - Eye Eye exam: Present: normal appearance, PERRL, EOMI - ENT ENT exam: Present: mucous membranes moist - Neck Neck exam: Present: normal inspection - Respiratory Respiratory exam: Present: normal lung sounds bilaterally. Absent: respiratory distress, wheezes, rales, rhonchi - Cardiovascular Cardiovascular Exam: Present: regular rate, normal rhythm. Absent: systolic murmur, diastolic murmur, rubs, gallop - GI/Abdominal GI/Abdominal exam: Present: soft, normal bowel sounds - Extremities Exam Extremities exam: Present: normal inspection - Expanded Upper Extremity Exam Right Shoulder Exam: Present: normal inspection Upper Arm exam: Present: normal inspection Elbow exam: Present: normal inspection Forearm Wrist exam: Present: tenderness, swelling, laceration (Approximately 7 cm laceration), other (an additional small skin tear) - Expanded Lower Extremity Exam Right Knee exam: Present: tenderness, swelling, ecchymosis. Absent: posterior draw sign, pain/laxity with valgus, pain/laxity with varus - Back Exam Back exam: Present: normal inspection - Neurological Exam Neurological exam: Present: alert, oriented X3 - Psychiatric Psychiatric exam: Present: normal affect, normal mood - Skin Skin exam: Present: warm, dry, intact, normal color. Absent: rash ED Medical Decision Making - Radiology Data [facility] [address] [place] [address] XRay Report Signed Patient: CHRIS MEJÍA MR#: [id number] : 1950 Acct:[id number] Age/Sex: 69 / F ADM Date: 01/10/20 Loc: ED Attending Dr: Ordering Physician: DENA BAKER MD Date of Service: 01/10/20 Procedure(s): XR knee 3V RT Accession Number(s): [id number] cc: DENA BAKER MD Fluoro Time In Minutes: XR knee 3V RT INDICATION / CLINICAL INFORMATION: pain after fall. COMPARISON: None available. FINDINGS: BONES/JOINT(S): No acute fracture or subluxation. Mild DJD in the medial femorotibial compartment. No significant joint effusion. Mild diffuse subjective bone demineralization. SOFT TISSUES: No significant abnormality. ADDITIONAL FINDINGS: None. Signer Name: Timothy Franco MD Signed: 01/10/2020 5:14 PM Workstation Name: [email or web address] ED Disposition Clinical Impression: Knee pain, Contusion, knee, Laceration Disposition: - TO HOME OR SELFCARE Condition: Stable Instructions: Suture Care (ED), Laceration (ED), Knee Effusion (ED), Knee Pain (ED) Additional Instructions: His sutures will need to be removed in 1 week Prescriptions: HYDROcodone/APAP 5-325 [[place] 5/325] 1 each PO Q6HR PRN #10 tablet PRN Reason: Pain Referrals: CHRIS VILLALOBOS MD [Staff Physician] - 3-5 Days <MONALISA CARPIO - Last Filed: 01/15/20 21:55> ED Review of Systems ROS: Stated complaint: FALL LACERATION TO ARM/KNEE PAIN Other details as noted in HPI ED Course Vital Signs 01/10/20 01/10/20 01/10/20 16:30 16:32 16:45 Temperature 98.2 F Pulse Rate 80 Respiratory 16 Rate Blood Pressure 136/52 Blood Pressure 142/64 [Left] O2 Sat by Pulse 100 99 100 Oximetry 01/10/20 01/10/20 01/10/20 17:00 17:15 17:30 Temperature Pulse Rate Respiratory Rate Blood Pressure 153/77 138/58 157/66 Blood Pressure [Left] O2 Sat by Pulse 99 98 100 Oximetry 01/10/20 01/10/20 01/10/20 17:46 18:00 18:23 Temperature Pulse Rate Respiratory 16 Rate Blood Pressure 133/107 133/107 Blood Pressure [Left] O2 Sat by Pulse 96 99 Oximetry - Laceration /Wound Repair Right Posterior Arm Wound Location: upper extremity (right posterior forearm) Wound Length (cm): 8 Wound's Depth, Shape: superficial Wound Explored: clean Irrigated w/ Saline (ccs): 500 Betadine Prep?: Yes Anesthesia: Lidocaine w/ Epi (1%) Volume Anesthetic (ccs): 12 Wound Debrided: extensive Wound Repaired With: sutures Suture Size/Type: 3:0 (ethilon) Number of Sutures: 11 Layer Closure?: No Sterile Dressing Applied?: Yes Progress: Wound irrigated with saline and thoroughly scrubbed with Betadine, no foreign body identified, no muscle or tendon involvement, 12 cc of 1% lidocaine with epinephrine used as anesthetic, Betadine prep again, sterile gloves worn, sterile drapes applied, 3-0 Ethilon used for skin closure, 11 sutures placed, patient tolerated well, no complications, bleeding controlled, sterile dressing applied Critical care attestation.: If time is entered above; I have spent that time in minutes in the direct care of this critically ill patient, excluding procedure time. ED Disposition Is pt being admited?: No Does the pt Need Aspirin: No
[2020-01-10] MEDS ORDERED: SODIUM CHLORIDE IRRI 500 ML 500 ML IR ONE (17:36)
[2020-01-10 18:05] VITALS: BP 133/107
== END 2020-01-10 19:00 | disposition home or self-care (01) ==
LOC: ED 16:02
DX: S51.811A Laceration without foreign body of right forearm, initial encounter (principal); I10 Essential (primary) hypertension; M19.91 Primary osteoarthritis, unspecified site; J44.9 Chronic obstructive pulmonary disease, unspecified; Z87.442 Personal history of urinary calculi; Z90.49 Acquired absence of other specified parts of digestive tract; Z98.890 Other specified postprocedural states; Z79.2 Long term (current) use of antibiotics; Z79.899 Other long term (current) drug therapy; Z88.0 Allergy status to penicillin; W01.0XXA Fall on same level from slipping, tripping and stumbling without subsequent striking against object, initial encounter; Y93.89 Activity, other specified; Y92.89 Other specified places as the place of occurrence of the external cause; Y99.8 Other external cause status